=== PATIENT | female | born 1965 | race African-American/Black ===

== ENCOUNTER 2017-07-08 05:02 | Inpatient (IN) | payer BC, OTHER ==
[2017-06-30 18:14] VITALS: BMI 28.8
--- NOTE | 2017-07-08 07:29 | HP ---
Past Medical History - Primary Care Physician PCP:: Lalo Tnag - Admission Chief Complaint: pelvic pain, large fibroid uterus History of Present Illness: 52 yo f with hx large pelvic mass consistant with fibroid uterus admitted for supracervical abdominal hysterectomy, possible BSO, risks of procedure has syed discussed with patient in detail, ulternatives and no tx explained History Source: Patient Limitations to Obtaining History: No Limitations - Past Medical History Cardiovascular: Yes: HTN ...: 0 ...Para: 0 Heme/Onc: Yes: Anemia - Past Surgical History Hx Myomectomy: No Hx Transabdominal Cerclage: No - Smoking History Smoking history: Never smoked Have you smoked in the past 12 months: No - Alcohol/Substance Use Hx Alcohol Use: No - Social History History of Recent Travel: No Home Medications - Allergies Allergies/Adverse Reactions: Allergies Allergy/AdvReac Type Severity Reaction Status Date / Time perfume Allergy Verified 06/30/17 18:05 - Home Medications Home Medications: Ambulatory Orders Iron,Carb/Vit C/Vit B12/Folic [Iron 100 Plus Tablet] 1 each PO DAILY 06/30/17 Nadolol [Corgard -] 40 mg PO DAILY 06/30/17 Olmesartan/Amlodipin/Hcthiazid [Tribenzor 20-5-12.5 mg Tablet] 1 each PO DAILY 06/30/17 Review of Systems - Review of Systems Constitutional: reports: Lethargy Eyes: reports: No Symptoms HENT: reports: No Symptoms Respiratory: reports: No Symptoms Gastrointestinal: reports: No Symptoms Genitourinary: reports: Pain, Urgency, Vaginal Bleeding Breasts: reports: No Symptoms Reported Musculoskeletal: reports: No Symptoms Integumentary: reports: No Symptoms Neurological: reports: No Symptoms Endocrine: reports: No Symptoms Hematology/Lymphatic: reports: No Symptoms Psychiatric: reports: No Symptoms Physical Exam-APPLICATION INTEGRATOR Constitutional: Yes: Well Nourished, No Distress, Calm Eyes: Yes: WNL, Conjunctiva Clear, EOM Intact HENT: Yes: WNL, Atraumatic, Normocephalic Neck: Yes: WNL, Supple, Trachea Midline Cardiovascular: Yes: WNL, Regular Rate and Rhythm Respiratory: Yes: WNL, Regular, CTA Bilaterally Gastrointestinal: Yes: WNL, Normal Bowel Sounds, Soft, Distention, Tenderness ...Rectal Exam: Yes: WNL Renal/: Yes: WNL Pelvis: Yes: Mass, Tenderness (pelvic mass extended to sternum area) External Genitalia: Yes: Normal Vaginal Exam: Yes: Normal Cervix: Yes: Normal Uterus: Yes: Enlarged, Lumpy (32 weeks sizeterus), Mass Adnexa: Not Palpable: Left, Right Breast(s): Yes: WNL Musculoskeletal: Yes: WNL Extremities: Yes: WNL Edema: LLE: Trace, RLE: Trace Integumentary: Yes: WNL Neurological: Yes: WNL, Alert, Oriented ...Motor Strength: WNL Psychiatric: Yes: WNL, Alert, Oriented Problem List - Problem (1) Pelvic pain Code(s): R10.2 - PELVIC AND PERINEAL PAIN (2) Fibroid, uterine Code(s): D25.9 - LEIOMYOMA OF UTERUS, UNSPECIFIED Qualifiers: Uterine leiomyoma location: intramural Qualified Code(s): D25.1 - Intramural leiomyoma of uterus Assessment/Plan supracervical abdominal hysterectomy, possible BSO, rba discussed
[2017-07-08] MEDS ORDERED: ceFAZolin 2 GRAM PREMIX BAG IVPB ONE (07:30)
[2017-07-08] MEDS ORDERED: ROPIVACAINE HCL 0.5% 30ML VIAL ONE (08:16)
[2017-07-08] MEDS ORDERED: DEXAMETHASONE SOD PHOSPHATE/PF 10 MG/ML SDV ONE (08:17)
[2017-07-08] MEDS ORDERED: ROCURONIUM BROMIDE 50 MG/5 ML VIAL ONE ×2 (08:19→08:26)
[2017-07-08] MEDS ORDERED: fentaNYL CITRATE 250 MCG/5 ML VIAL ONE ×2 (08:19→08:26)
[2017-07-08] MEDS ORDERED: PROPOFOL 20 ML ONE ×2 (08:19→08:26)
[2017-07-08] MEDS ORDERED: MIDAZOLAM HCL 2 MG/2 ML SINGLE DOSE VIAL ONE ×3 (08:19→08:26)
[2017-07-08] MEDS ORDERED: ceFAZolin SODIUM 1 GM VIAL ONE (08:22)
[2017-07-08] MEDS ORDERED: SUCCINYLCHOLINE CHLORIDE 200 MG/10 ML VIAL ONE (08:26)
[2017-07-08] MEDS ORDERED: LIDOCAINE HCL/PF 2% SDV 5ML VIAL ONE (08:30)
[2017-07-08] MEDS ORDERED: ceFAZolin SODIUM 1 GM VIAL IVPB ONE (09:50)
[2017-07-08] MEDS ORDERED: oxyCODONE HCL 5 MG TABLET PO PRN ×3 (11:54→12:19)
[2017-07-08] MEDS ORDERED: IBUPROFEN 600 MG TABLET (FP) PO PRN (11:54)
[2017-07-08] MEDS ORDERED: ONDANSETRON 4 MG/2 ML VIAL IVPUSH PRN (11:54)
[2017-07-08] MEDS ORDERED: ELECTROLYTE-148 SOLN 1,000 ML IV SCH (12:00)
[2017-07-08] MEDS ORDERED: LACTATED RINGERS SOLUTION 1,000 ML IV SCH (12:30)
[2017-07-08] MEDS ORDERED: IBUPROFEN 800 MG/8 ML IJ IVPB ONE (12:49)
[2017-07-08] MEDS: IBUPROFEN 800 MG/8 ML IJ IVPB PRN (12:58)
--- NOTE | 2017-07-08 13:09 | OP ---
DATE OF OPERATION: 07/08/2017 PREOPERATIVE DIAGNOSES: Pelvic pain, large fibroid uterus. POSTOPERATIVE DIAGNOSES: Pelvic pain, large fibroid uterus, pelvic adhesion and bowel adhesions. SURGEON: Lalo Tang MD AIR TRAFFIC CONTROL SPECIALIST CENTER: Jeanne Huang MD ESTIMATED BLOOD LOSS: 200 mL ANESTHESIA: General. DESCRIPTION OF OPERATION: Patient was taken to the operating room. Under adequate general anesthesia in the dorsal supine position, abdomen and perineum were prepped and draped. Pfannenstiel abdominal skin incision was made. Abdominal wall was cut layer by layer until the peritoneum was exposed and incised. Upon entering the abdominal cavity, there was found a large fibroid uterus with multiple intramural myomas extending up to the transverse colon. Small bowel was adherent to the left ovary, and there was a paracervical 8-cm fibroid in the left broad ligament with bowel adhering to that area. The left ovary was adherent to the posterior uterine wall. Because of the massive size of the fibroid, we were unable to deliver the fibroid. Therefore, the rectus muscles were split on the right side, and then, more room was made available. Then, the fibroid was delivered at this time to the surface. The small bowel on the left side was dissected with the Metzenbaum scissors meticulously, and bowel was released from the ovary and the paracervical fibroid. Then, the right ovary appeared to be normal. Bladder was extended up into the mid-uterine wall with lower uterine segment fibroid. At this time, anterior leaf of broad ligament was opened, and the bladder was pushed down. On the left side, infundibulopelvic ligament was identified, and a hole was made into the broad ligament. Left infundibulopelvic ligament was grasped with a Reinaldo clamp, cut, and the clamp replaced with 0 Vicryl ties first and then with 0 Vicryl ligature suture. At this time, bladder was further pushed down. The left tube was removed with the bipolar LigaSure cautery. Then, on the right side, the right ovarian ligament and tube were grasped with a Reinaldo clamp and cut, and then, the clamp replaced with 0 Vicryl tie. Then, the right tube was removed with LigaSure cautery. There were large bilateral uterine arteries, and then, there was also a left broad ligament fibroid which was dissected from the pelvic sidewall by opening up the serosa and peritoneum. Then, the fibroid was removed from the pelvic sidewall, and then, the left ureter at this time was exposed and examined, was intact. Then, bilateral uterine arteries were identified, clamped with a Reinaldo clamp, cut, and the clamp replaced with 0 Vicryl suture bilaterally. At this time, bladder was further pushed down. Then, paracervical area was clamped with Reinaldo clamp, cut, and the clamp replaced with 0 Vicryl suture bilaterally. Then, the specimen was removed above the cervix. The cervix was sutured with interrupted suture of 0 Vicryl, and then, no active bleeding was seen. Pelvic cavity several times irrigated. Both ureters were examined visually, were normal. Then, reperitonealization of the pelvic floor was done with continuous suture of 2-0 Vicryl. Then, all pedicles were checked, were dry. No active bleeding was seen. All the lap pads, sponge, and instrument counts were correct. Peritoneum was closed with 0 Vicryl continuous suture. Rectus muscles, which were split, were brought together with interrupted suture of 0 Vicryl and approximated. Then, the muscles were brought together with interrupted suture of 0 Vicryl. Fascia was closed with 0 Vicryl continuous suture, subcutaneous fat with interrupted suture of 0 Vicryl, and the skin was closed with 4-0 Biosyn subcuticular suture. Patient tolerated the procedure well, left the OR in good condition. Sherrie [id number]
[2017-07-08] MEDS ORDERED: oxyCODONE HCL 5 MG TABLET ONE (13:18)
[2017-07-08] MEDS ORDERED: PCA PUMP KEY 1 EACH EACH ONE (15:22)
[2017-07-08] MEDS: HYDROmorphone *PCA* 10MG/50ML DISP.SYRIN PCA SCH (16:40)
[2017-07-08] MEDS: CEFAZOLIN 1 GM/D5W 1 GM/50 ML BAG IVPB SCH (17:51)
[2017-07-08] MEDS ORDERED: oxyCODONE HCL 10 MG SUSTAINED ACTING TABLET PO SCH (22:00)
[2017-07-09] MEDS: CEFAZOLIN 1 GM/D5W 1 GM/50 ML BAG IVPB SCH ×2 (01:27→10:06)
[2017-07-09 07:50] LABS: HEMATOCRIT 29.6 % (32.4-45.2); HEMOGLOBIN 9.9 GM/dL (10.7-15.3); MCH 29.5 pg (25.7-33.7); MCHC 33.5 g/dl (32.0-36.0); PLATELET COUNT 245 K/MM3 (134-434); RBC 3.37 M/mm3 (3.60-5.2); RDW 14.9 % (11.6-15.6); WHITE BLOOD COUNT 8.1 K/mm3 (4.0-10.0)
[2017-07-09] MEDS: IBUPROFEN 800 MG/8 ML IJ IVPB PRN ×2 (08:27→17:26)
[2017-07-09 08:29] LABS: CHLORIDE 102 mmol/L (98-107); POTASSIUM 3.5 mmol/L (3.5-5.1); SODIUM 138 mmol/L (136-145)
[2017-07-09 08:36] LABS: ALK PHOS 42 U/L (45-117); ANION GAP 7 (8-16); BILIRUBIN,TOTAL 0.2 mg/dL (0.2-1.0); BLOOD UREA NITROGEN 11 mg/dL (7-18); CALCIUM 8.1 mg/dL (8.5-10.1); CO2 29 mmol/L (21-32); CREATININE 0.7 mg/dL (0.55-1.02); GLUCOSE,RANDOM 112 mg/dL (74-106); SGOT/AST 18 U/L (15-37); SGPT/ALT 16 U/L (12-78); TOT PROT 6.1 g/dl (6.4-8.2)
--- NOTE | 2017-07-09 09:41 | PN ---
Progress Note (short form) - Note Progress Note: pod 1, has nausea , vomited once CBC, BMP 07/09/17 06:00 07/09/17 06:00 Last Vital Signs Temp Pulse Resp BP Pulse Ox 98.6 F 69 20 117/52 98 07/09/17 06:00 07/09/17 06:00 07/09/17 06:00 07/09/17 06:00 07/08/17 20:22 abdomen soft, no distension, no cva incision dry, clean no calf tenderness no vaginal bleeding hernandez clear urine plan ambualte, advance diet d/c INSTRUMENTATION CONTROLS ENGINEER Problem List - Problems (1) Pelvic pain Code(s): R10.2 - PELVIC AND PERINEAL PAIN (2) Fibroid, uterine Code(s): D25.9 - LEIOMYOMA OF UTERUS, UNSPECIFIED Qualifiers: Uterine leiomyoma location: intramural Qualified Code(s): D25.1 - Intramural leiomyoma of uterus
[2017-07-09] MEDS ORDERED: BISACODYL 10 MG SUPP.RECT RC PRN (09:42)
--- NOTE | 2017-07-09 10:22 | PN ---
Progress Note, Physician Chief Complaint: day #1 s/p JOSUE - Current Medication List Current Medications: Active Medications Acetaminophen (Tylenol -) 650 mg PO Q6H PRN PRN Reason: PAIN LEVEL 1 - 3 Bisacodyl (Dulcolax Suppository -) 10 mg WA PRN PRN PRN Reason: CONSTIPATION Hydromorphone HCl (Dilaudid Children'S Author -) 10 mg PROCESS PLANT OPERATOR PROCESS PLANT OPERATOR VINNIE PRN Reason: Protocol Stop: 07/11/17 15:12 Last Admin: 07/08/17 16:40 Dose: 10 mg Parenteral Electrolytes (Plasma-Lyte 148 -) 1,000 mls @ 125 mls/hr IV ASDIR VINNIE Cefazolin Sodium (Ancef 1 Gm Premixed Ivpb -) 1 gm in 50 mls @ 100 mls/hr IVPB Q8H-IV VINNIE Stop: 07/09/17 17:59 Last Admin: 07/09/17 10:06 Dose: 100 mls/hr Lactated Ringer's (Lactated Ringers Solution) 1,000 mls @ 125 mls/hr IV ASDIR VINNIE Last Admin: 07/08/17 17:34 Dose: Not Given Ibuprofen (Motrin -) 600 mg PO Q6H PRN PRN Reason: FEVER Ibuprofen (Caldolor Injection -) 800 mg IVPB Q6H PRN PRN Reason: Fever - If PO not effective. Last Admin: 07/09/17 08:27 Dose: 800 mg Ondansetron HCl (Zofran Injection) 4 mg IVPUSH Q6H PRN PRN Reason: NAUSEA Last Admin: 07/09/17 06:52 Dose: 4 mg Simethicone (Mylicon -) 80 mg PO Q4H PRN PRN Reason: GAS - Objective Vital Signs: Vital Signs Temperature 98.6 F 07/09/17 06:00 Pulse Rate 69 07/09/17 06:00 Respiratory Rate 20 07/09/17 06:00 Blood Pressure 117/52 07/09/17 06:00 O2 Sat by Pulse Oximetry (%) 98 07/08/17 20:22 Labs: CBC, BMP 07/09/17 06:00 07/09/17 06:00 Assessment/Plan Comfortable after PROCESS PLANT OPERATOR was enacted last afternoon. Minimal pain today, but will keep PROCESS PLANT OPERATOR for now
[2017-07-09] MEDS ORDERED: PCA PUMP KEY 1 EACH EACH ONE (13:16)
[2017-07-09] MEDS: ACETAMINOPHEN 325 MG TABLET (FP) PO PRN (13:40)
[2017-07-09] MEDS: SIMETHICONE 80 MG TAB.CHEW (FP) PO PRN (13:41)
[2017-07-10] MEDS: ACETAMINOPHEN 325 MG TABLET (FP) PO PRN (02:45)
[2017-07-10] MEDS ORDERED: oxyCODONE HCL 5 MG TABLET PO PRN (04:03)
[2017-07-10] MEDS: oxyCODONE HCL 5 MG TABLET PO PRN ×2 (04:07→14:52)
[2017-07-10] MEDS: HYDROmorphone *PCA* 10MG/50ML DISP.SYRIN PCA SCH (07:06)
[2017-07-10 08:12] VITALS: BP 119/74; PULSE 66; TEMP 98.3
--- NOTE | 2017-07-10 09:05 | PN ---
Progress Note, Physician Chief Complaint: day #2 s/p JOSUE - Current Medication List Current Medications: Active Medications Acetaminophen (Tylenol -) 650 mg PO Q6H PRN PRN Reason: PAIN LEVEL 1 - 3 Last Admin: 07/10/17 02:45 Dose: 650 mg Bisacodyl (Dulcolax Suppository -) 10 mg RC PRN PRN PRN Reason: CONSTIPATION Last Admin: 07/09/17 20:54 Dose: 10 mg Parenteral Electrolytes (Plasma-Lyte 148 -) 1,000 mls @ 125 mls/hr IV ASDIR VINNIE Lactated Ringer's (Lactated Ringers Solution) 1,000 mls @ 125 mls/hr IV ASDIR VINNIE Last Admin: 07/08/17 17:34 Dose: Not Given Ibuprofen (Motrin -) 600 mg PO Q6H PRN PRN Reason: FEVER Ibuprofen (Caldolor Injection -) 800 mg IVPB Q6H PRN PRN Reason: Fever - If PO not effective. Last Admin: 07/09/17 17:26 Dose: 800 mg Ondansetron HCl (Zofran Injection) 4 mg IVPUSH Q6H PRN PRN Reason: NAUSEA Last Admin: 07/09/17 06:52 Dose: 4 mg Oxycodone HCl (Roxicodone -) 5 mg PO Q4H PRN PRN Reason: PAIN LEVEL 4 - 5 Oxycodone HCl (Roxicodone -) 10 mg PO Q4H PRN PRN Reason: PAIN LEVEL 6-10 Last Admin: 07/10/17 04:07 Dose: 10 mg Simethicone (Mylicon -) 80 mg PO Q4H PRN PRN Reason: GAS Last Admin: 07/09/17 13:41 Dose: 80 mg - Objective Vital Signs: Vital Signs Temperature 98.3 F 07/10/17 08:10 Pulse Rate 66 07/10/17 08:10 Respiratory Rate 20 07/10/17 08:10 Blood Pressure 119/74 07/10/17 08:10 O2 Sat by Pulse Oximetry (%) 98 07/09/17 14:00 Labs: CBC, BMP 07/09/17 06:00 07/09/17 06:00 Assessment/Plan Dilaudid NATURAL GAS BASIS TRADER was d/c'ed yesterday, as per patient. Pt with minimal pain, ready for discharge today.
[2017-07-10] MEDS ORDERED: MAGNESIUM HYDROX 2400MG/30ML ORAL SUSPENSION 30 ML CUP PO ONE (09:15)
[2017-07-10] MEDS: SIMETHICONE 80 MG TAB.CHEW (FP) PO PRN ×2 (09:48→14:53)
--- NOTE | 2017-07-10 15:09 | DS ---
Physical Exam-PROSTHODONTIST/OWNER Vital Signs: Vital Signs Temperature 98.3 F 07/10/17 08:10 Pulse Rate 66 07/10/17 08:10 Respiratory Rate 20 07/10/17 08:10 Blood Pressure 119/74 07/10/17 08:10 O2 Sat by Pulse Oximetry (%) 98 07/09/17 14:00 Constitutional: Yes: Well Nourished, No Distress, Calm Eyes: Yes: WNL, Conjunctiva Clear, EOM Intact HENT: Yes: WNL, Atraumatic, Normocephalic Neck: Yes: WNL, Supple, Trachea Midline Cardiovascular: Yes: WNL, Regular Rate and Rhythm Respiratory: Yes: WNL, Regular, CTA Bilaterally Gastrointestinal: Yes: WNL ...Rectal Exam: Yes: WNL Renal/: Yes: WNL Breast(s): Yes: WNL Musculoskeletal: Yes: WNL Extremities: Yes: WNL Edema: No Integumentary: Yes: WNL Wound/Incision: Yes: Clean/Dry, Well Approximated, Sutures Intact Neurological: Yes: WNL, Alert, Oriented ...Motor Strength: WNL Psychiatric: Yes: WNL, Alert, Oriented Labs: CBC, BMP 07/09/17 06:00 07/09/17 06:00 Discharge Summary Reason For Visit: LEIOMYOMA INTRAMURAL UTERUS Current Active Problems Fibroid, uterine (Acute) Pelvic pain (Acute) Procedures: Principal: suprcervical abdominal hysterectomy, , bilateral salpingectomy, LT oophorectomy Other Procedures: lysis of pelvic adhesions Condition: Good - Instructions Diet, Activity, Other Instructions: regualr diet, follow up office 2 weeks, if pain, fever call MD Referrals: Lalo Tang MD [Staff Physician] - - Home Medications Comprehensive Discharge Medication List: Ambulatory Orders Iron,Carb/Vit C/Vit B12/Folic [Iron 100 Plus Tablet] 1 each PO DAILY 06/30/17 Nadolol [Corgard -] 40 mg PO DAILY 06/30/17 Olmesartan/Amlodipin/Hcthiazid [Tribenzor 20-5-12.5 mg Tablet] 1 each PO DAILY 06/30/17
--- NOTE | 2017-07-11 09:40 | PATH ---
Surgical Pathology Report Patient Name: ROMI DURHAM [facility]. Rec. #: [id number] /Age/Gender: 1965 (Age: 52) / F Account: [id number] Location: [facility] OBS/BIOMASS POWER PLANT MANAGER Taken: 07/08/2017 Received: 07/08/2017 Reported: 07/11/2017 Physicians: Lalo Tang M.D. Specimen(s) Received A: RIGHT FALLOPIAN TUBE B: UTERUS, LEFT FALLOPIAN TUBE, LEFT OVARY Clinical History Fibroid uterus Final Diagnosis A. RIGHT FALLOPIAN TUBE, SALPINGECTOMY: FULL LUMINAL PORTION OF UNREMARKABLE FALLOPIAN TUBE, INCLUDING FIMBRIATED END B. UTERUS WITH LEFT FALLOPIAN TUBE AND LEFT OVARY, SUPRACERVICAL HYSTERECTOMY WITH LEFT SALPINGO-OOPHORECTOMY: UTERUS, 2689 GRAMS, WITH LEIOMYOMATA WITH AREAS OF DEGENERATIVE CHANGE, FOCAL ADENOMYOSIS, AND PROLIFERATIVE ENDOMETRIUM. BENIGN LEFT FALLOPIAN TUBE PRESENT. BENIGN LEFT OVARY WITH HEMORRHAGIC LUTEAL CYST. Electronically Signed Germán Alexis M.D. Gross Description A. Received in formalin labeled "right fallopian tube," is a 3.8 cm in length fimbriated fallopian tube. The outer surface is arevalo purple with adhesions. Sectioning reveals an unremarkable lumen. Grain Elevator Worker sections are submitted in 2 cassettes as follows: 1-fimbria; 2-cross sections of fallopian tube. B. Received fresh labeled "uterus, left ovary, left fallopian tube," is a 2689 g supracervically amputated uterus with an attached left fallopian tube and left ovary. The specimen measures 24 cm from superior to inferior, 16.5 cm from left to right and 16.5 cm from anterior to posterior. The serosa is reis with abundant bulging subserosal nodules, measuring up to 11.5 cm in greatest dimension. The endometrial cavity measures 12 cm in length and 8.5 cm from cornu to cornu. The endometrium is reis-brown and measures up to 0.3 cm in thickness. The myometrium displays abundant intramural nodules, measuring up to 8.5 cm in greatest dimension. The cut surface of the subserosal and intramural nodules is reis, firm to rubbery and displays whorled architecture. No areas of hemorrhage or necrosis are identified. The myometrium is reis-pink and measures up to 9 cm in thickness. The attached left fimbriated fallopian tube measures 7 cm in length. The outer surface is pinedo purple and smooth. Sectioning reveals an unremarkable lumen. The attached left ovary measures 3.8 x 2.1 x 1.6 cm. The outer surface is reis, convoluted and smooth. Sectioning reveals a 2 cm in greatest dimension hemorrhagic cyst as well as multiple corpora lutea. The remaining ovarian parenchyma is unremarkable. Grain Elevator Worker sections are submitted in 19 cassettes as follows: 1-cervical stump margin of resection; 9-5-cxubmlyy endomyometrium; 9-0-uxlfyzfrj endomyometrium; 6-96-qtmcywpecb nodules; 75-34-ojvdvtvkmq nodules; 16-left fallopian tube fimbria; 17-cross sections of left fallopian tube; 18-hemorrhagic left ovarian cyst; 19-additional left ovary. 07/09/2017 [facility]07/09/2017
== END 2017-07-10 16:30 | disposition home or self-care (01) | DRG 743 ==
LOC: JSAMEDAYSX 05:02 → EDSTATUS 09:00 → J3W 14:22
PROVIDERS: ADMIT Obstetrics & Gynecology; ATTEND Obstetrics & Gynecology
PROC: 0DNW0ZZ Release Peritoneum, Open Approach (ICD-10-PCS; 2017-07-08)
PROC: 0UT60ZZ Resection of Left Fallopian Tube, Open Approach (ICD-10-PCS; 2017-07-08)
PROC: 0UT10ZZ Resection of Left Ovary, Open Approach (ICD-10-PCS; 2017-07-08)
PROC: 0UT50ZZ Resection of Right Fallopian Tube, Open Approach (ICD-10-PCS; 2017-07-08)
PROC: 0UT90ZL Resection of Uterus, Supracervical, Open Approach (ICD-10-PCS; principal; 2017-07-08 09:00)
DX: D25.1 Intramural leiomyoma of uterus (principal); R10.2 Pelvic and perineal pain; N73.6 Female pelvic peritoneal adhesions (postinfective); N83.292 Other ovarian cyst, left side; N80.0 Endometriosis of uterus
CPT/HCPCS: 36415; 80053; 84702; 85027; 86850; 86900; 86901; 88302-TC; 88307-TC; 94010; 94760

== ENCOUNTER 2021-04-30 11:03 | Inpatient (IN) | payer BC, OTHER ==
[2021-04-30] MEDS ORDERED: SODIUM CHLORIDE 1,000 ML IV STA (13:37)
[2021-04-30 15:39] LABS: URINE APPEARANCE CLEAR; URINE BILIRUBIN 1+ (NEGATIVE); URINE COLOR DK YELLOW; URINE GLUCOSE (UA) NEGATIVE (NEGATIVE); URINE KETONE NEGATIVE (NEGATIVE); URINE LEUK ESTERASE NEGATIVE (NEGATIVE); URINE NITRITE NEGATIVE (NEGATIVE); URINE PROTEIN NEGATIVE (NEGATIVE)
[2021-04-30 15:47] LABS: BASO % 0.9 % (0-2.0); EOS % 1.6 % (0-4.5); HEMATOCRIT 41.2 % (32.4-45.2); HEMOGLOBIN 13.8 GM/dL (10.7-15.3); LYMPH % 30.3 % (8-40); MCH 28.5 pg (25.7-33.7); MCHC 33.4 g/dl (32.0-36.0); MEAN CELL VOLUME 85.4 fl (80-96); MEAN PLT VOLUME 10.5 fl (7.5-11.1); NEUT % 54.2 % (42.8-82.8); PLATELET COUNT 313 10^3/uL (134-434); RBC 4.82 M/mm3 (3.60-5.2); RDW 16.4 % (11.6-15.6); WHITE BLOOD COUNT 5.3 K/mm3 (4.0-10.0)
[2021-04-30 16:10] LABS: CHLORIDE 101 mmol/L (98-107); SODIUM 137 mmol/L (136-145)
[2021-04-30 16:13] LABS: ALBUMIN 3.7 g/dl (3.4-5.0); BLOOD UREA NITROGEN 11.2 mg/dL (7-18); CALCIUM 9.6 mg/dL (8.5-10.1); LIPASE 81 U/L (73-393)
[2021-04-30 16:14] LABS: ANION GAP 9 MMOL/L (8-16); CO2 26 mmol/L (21-32); GLUCOSE,RANDOM 90 mg/dL (74-106)
[2021-04-30 16:16] LABS: CREATININE 0.8 mg/dL (0.55-1.3)
[2021-04-30 16:18] LABS: BILIRUBIN,TOTAL 5.5 mg/dL (0.2-1); TOT PROT 7.8 g/dl (6.4-8.2)
[2021-04-30 16:19] LABS: ALK PHOS 450 U/L (45-117)
[2021-04-30 16:33] LABS: SGOT/AST 1752 U/L (15-37); SGPT/ALT 2711 U/L (13-61)
[2021-04-30] MEDS ORDERED: PANTOPRAZOLE SODIUM 40 MG VIAL IVPUSH ONE (18:47)
[2021-04-30] MEDS ORDERED: PANTOPRAZOLE SODIUM 40 MG VIAL ONE ×2 (18:59→19:54)
[2021-04-30] MEDS ORDERED: SODIUM CHLORIDE 1,000 ML IV SCH (19:00)
[2021-04-30] MEDS ORDERED: POLYETHYLENE GLYCOL (HEALTHYLAX) 3350 17 GM PACKET PO PRN (20:55)
[2021-04-30] MEDS ORDERED: DEXTROSE 5%-NORMAL SALINE 1,000 ML IV SCH (21:00)
[2021-04-30] MEDS ORDERED: ONDANSETRON 4 MG/2 ML VIAL IVPUSH PRN (21:15)
[2021-04-30] MEDS ORDERED: PIPERACILLIN/TAZOB 3.375 GM 3.375 GM/50 ML BAG IVPB ONE (22:57)
[2021-04-30 23:08] LABS: INR 1.3 (0.83-1.09)
[2021-04-30] MEDS: PIPERACILLIN/TAZOB 3.375 GM 3.375 GM in DEXTROSE 5%-WATER - 50 ML IVPB SCH (23:11)
[2021-04-30] MEDS: LACTATED RINGERS SOLUTION 1,000 ML/1,000 ML INFUS.BAG IV SCH (23:11)
[2021-05-01] MEDS ORDERED: PIPERACILLIN/TAZOB 3.375 GM 3.375 GM in DEXTROSE 5%-WATER - 50 ML IVPB SCH (02:00)
[2021-05-01 02:41] LABS: BILIRUBIN,DIRECT 3.8 mg/dL (0.0-0.2)
[2021-05-01 02:54] LABS: LDH 1879 U/L (84-246)
[2021-05-01] MEDS: PIPERACILLIN/TAZOB 3.375 GM 3.375 GM in DEXTROSE 5%-WATER - 50 ML IVPB SCH ×3 (04:15→17:48)
[2021-05-01] MEDS ORDERED: DEXTROSE 5%-WATER - 50 ML IVPB ONE ×3 (04:15→17:23)
[2021-05-01] MEDS ORDERED: PIPERACILLIN/TAZOBACTAM 3.375 GM VIAL IVPB ONE ×3 (04:15→17:23)
[2021-05-01 05:26] VITALS: BMI 28.2
[2021-05-01] MEDS: POLYETHYLENE GLYCOL (HEALTHYLAX) 3350 17 GM PACKET PO SCH (09:50)
[2021-05-01 11:48] LABS: BASO % 1.3 % (0-2.0); EOS % 7.4 % (0-4.5); HEMATOCRIT 35.9 % (32.4-45.2); HEMOGLOBIN 11.6 GM/dL (10.7-15.3); LYMPH % 34.2 % (8-40); MCHC 32.4 g/dl (32.0-36.0); MEAN CELL VOLUME 86.5 fl (80-96); MEAN PLT VOLUME 10.5 fl (7.5-11.1); MONO % 10.9 % (3.8-10.2); NEUT % 46.2 % (42.8-82.8); PLATELET COUNT 265 10^3/uL (134-434); RBC 4.15 M/mm3 (3.60-5.2); RDW 16.4 % (11.6-15.6); WHITE BLOOD COUNT 4.1 K/mm3 (4.0-10.0)
[2021-05-01 11:54] LABS: INR 1.26 (0.83-1.09); PROTHROMBIN TIME (PATIENT) 14.5 SEC (9.7-13.0)
[2021-05-01 11:56] LABS: ACTIVATED PTT 28.8 SECONDS (25.2-36.5)
[2021-05-01 12:06] LABS: BLOOD UREA NITROGEN 10.3 mg/dL (7-18); CALCIUM 9.1 mg/dL (8.5-10.1)
[2021-05-01 12:07] LABS: MAGNESIUM 2.3 mg/dL (1.8-2.4)
[2021-05-01 12:08] LABS: BILIRUBIN,DIRECT 3.8 mg/dL (0.0-0.2)
[2021-05-01 12:10] LABS: CREATININE 0.9 mg/dL (0.55-1.3)
[2021-05-01 12:11] LABS: BILIRUBIN,TOTAL 4.5 mg/dL (0.2-1)
[2021-05-01] MEDS ORDERED: WATER IVPB ONE (13:55)
[2021-05-01] MEDS ORDERED: DEXTROSE 5% IVPB ONE (13:55)
[2021-05-01] MEDS ORDERED: ACETYLCYSTEINE IVPB ONE (13:55)
[2021-05-01 15:50] LABS: IRON SERUM 187 ug/dL (50-175)
[2021-05-01 15:51] LABS: TOTAL IRON BINDING CAPACITY 279 ug/dL (250-450)
[2021-05-01] MEDS: LACTATED RINGERS SOLUTION 1,000 ML/1,000 ML INFUS.BAG IV SCH (21:55)
[2021-05-02] MEDS ORDERED: PIPERACILLIN/TAZOBACTAM 3.375 GM VIAL IVPB ONE ×2 (00:55→09:38)
[2021-05-02] MEDS ORDERED: DEXTROSE 5%-WATER - 50 ML IVPB ONE ×2 (00:56→09:38)
[2021-05-02] MEDS: PIPERACILLIN/TAZOB 3.375 GM 3.375 GM in DEXTROSE 5%-WATER - 50 ML IVPB SCH ×3 (01:02→18:08)
[2021-05-02 08:49] LABS: BASO % 1.5 % (0-2.0); EOS % 9.9 % (0-4.5); HEMATOCRIT 36.1 % (32.4-45.2); HEMOGLOBIN 11.9 GM/dL (10.7-15.3); LYMPH % 35.7 % (8-40); MCH 28.3 pg (25.7-33.7); MCHC 32.9 g/dl (32.0-36.0); MEAN CELL VOLUME 86.1 fl (80-96); MEAN PLT VOLUME 10.2 fl (7.5-11.1); MONO % 10.7 % (3.8-10.2); NEUT % 42.2 % (42.8-82.8); PLATELET COUNT 269 10^3/uL (134-434); RBC 4.19 M/mm3 (3.60-5.2); RDW 16.7 % (11.6-15.6); WHITE BLOOD COUNT 3.6 K/mm3 (4.0-10.0)
[2021-05-02 09:21] LABS: INR 1.37 (0.83-1.09); PROTHROMBIN TIME (PATIENT) 15.8 SEC (9.7-13.0)
[2021-05-02 09:37] LABS: ALBUMIN 2.8 g/dl (3.4-5.0); BLOOD UREA NITROGEN 6.8 mg/dL (7-18)
[2021-05-02 09:40] LABS: CREATININE 0.7 mg/dL (0.55-1.3)
[2021-05-02 09:42] LABS: BILIRUBIN,TOTAL 4.9 mg/dL (0.2-1); TOT PROT 6.3 g/dl (6.4-8.2)
[2021-05-02] MEDS: POLYETHYLENE GLYCOL (HEALTHYLAX) 3350 17 GM PACKET PO SCH (10:00)
[2021-05-02] MEDS: amLODIPine BESYLATE 5 MG TABLET (FP) PO SCH ×2 (10:00→13:21)
[2021-05-02 14:55] VITALS: BP 142/93; PULSE 71; TEMP 98.1
[2021-05-03 05:06] LABS: CMV IgM < 30.0 AU/mL (0.0-29.9)
[2021-05-03 16:08] LABS: EPSTEIN BARR ANTIBODY IgM <36.0 U/mL (0.0-35.9)
[2021-05-04 15:07] LABS: MITOCHONDRIAL AB <20.0 Units (0.0-20.0)
== END 2021-05-02 18:51 | disposition short-term general hospital (02) | DRG 445 ==
LOC: JER 11:03 → JERBED 20:31 → J6S 05-01 03:59
PROVIDERS: ADMIT Internal Medicine; ATTEND Family Medicine
DX: K81.0 Acute cholecystitis (principal); B17.9 Acute viral hepatitis, unspecified; I10 Essential (primary) hypertension; R74.01 Elevation of levels of liver transaminase levels; R11.0 Nausea
CPT/HCPCS: 36415; 71045-TC-FY; 71046-TC-FY; 74177-TC; 74181-TC; 76705-TC; 78226-TC; 80048; 80053; 80076; 81003; 82150; 82248; 82550; 82977; 83516; 83540; 83550; 83615; 83690; 83735; 84484; 85025; 85610; 85730; 86038; 86644; 86645; 86663; 86664; 86665; 86695; 86696; 86704; 86707; 86803; 86850; 86900; 86901; 87040; 87086; 87340; 87350; 87517; 87522; 93005; 93010; 99285-25; A9537; C9803; Q9967; U0003; U0005

== ENCOUNTER 2021-06-13 17:11 | Emergency (ER) | payer BC, OTHER ==
[2021-06-13 17:39] VITALS: BMI 26.6
[2021-06-13 21:21] LABS: BASO % 1.6 % (0-2.0); EOS % 5.1 % (0-4.5); HEMATOCRIT 36.2 % (32.4-45.2); HEMOGLOBIN 12.6 GM/dL (10.7-15.3); LYMPH % 37.5 % (8-40); MCH 30.9 pg (25.7-33.7); MCHC 34.9 g/dl (32.0-36.0); MEAN CELL VOLUME 88.7 fl (80-96); MEAN PLT VOLUME 10.3 fl (7.5-11.1); MONO % 10.6 % (3.8-10.2); NEUT % 45.2 % (42.8-82.8); PLATELET COUNT 215 10^3/uL (134-434); RBC 4.08 M/mm3 (3.60-5.2); RDW 17.1 % (11.6-15.6); WHITE BLOOD COUNT 7.4 K/mm3 (4.0-10.0)
[2021-06-13 21:29] LABS: INR 1.82 (0.83-1.09)
[2021-06-13 21:32] LABS: ACTIVATED PTT 30.7 SECONDS (25.2-36.5)
[2021-06-13 21:43] LABS: ALBUMIN 3.2 g/dl (3.4-5.0); CALCIUM 9.1 mg/dL (8.5-10.1)
[2021-06-13 21:44] LABS: BLOOD UREA NITROGEN 7.2 mg/dL (7-18)
[2021-06-13 21:47] LABS: CREATININE 0.7 mg/dL (0.55-1.3)
[2021-06-13 21:48] LABS: BILIRUBIN,TOTAL 12.9 mg/dL (0.2-1); TOT PROT 6.8 g/dl (6.4-8.2)
[2021-06-14] MEDS ORDERED: WATER IVPB ONE ×2 (00:26→05:00)
[2021-06-14] MEDS ORDERED: DEXTROSE 5% IVPB ONE ×2 (00:26→05:00)
[2021-06-14] MEDS ORDERED: ACETYLCYSTEINE IVPB ONE ×2 (00:26→05:00)
[2021-06-14 03:09] VITALS: TEMP 98.3
[2021-06-14 07:17] VITALS: BP 144/99; PULSE 99
== END 2021-06-14 07:17 | disposition short-term general hospital (02) ==
LOC: JER 17:11
PROC: 3E033GC Introduction of Other Therapeutic Substance into Peripheral Vein, Percutaneous Approach (ICD-10-PCS; principal; 2021-06-13)
DX: K72.00 Acute and subacute hepatic failure without coma (principal)
CPT/HCPCS: 36415; 71046-TC-FY; 80053; 83690; 85025; 85610; 85730; 93005; 93010; 99285-25; C9803; U0003; U0005

== ENCOUNTER 2022-04-03 04:21 | Day surgery (SDC) | payer BC, OTHER ==
[2022-04-03 08:05] VITALS: BMI 27.6
[2022-04-03 09:30] VITALS: TEMP 97
[2022-04-03 10:23] VITALS: BP 160/92; PULSE 66; RESP 11
== END 2022-04-03 10:43 | disposition home or self-care (01) ==
LOC: JASU-ENDO 04:21
PROVIDERS: ATTEND Internal Medicine Gastroenterology
PROC: 0DBN8ZX Excision of Sigmoid Colon, Via Natural or Artificial Opening Endoscopic, Diagnostic (ICD-10-PCS; 2022-04-03)
PROC: 0DBP8ZX Excision of Rectum, Via Natural or Artificial Opening Endoscopic, Diagnostic (ICD-10-PCS; principal; 2022-04-03 09:00)
DX: Z12.11 Encounter for screening for malignant neoplasm of colon (principal); K62.1 Rectal polyp; D12.5 Benign neoplasm of sigmoid colon; K63.89 Other specified diseases of intestine; K64.8 Other hemorrhoids
CPT/HCPCS: 88305-TC

== ENCOUNTER 2022-04-08 13:19 | Inpatient (IN) | payer BC, OTHER ==
[2022-04-08] MEDS ORDERED: LACTATED RINGERS SOLUTION 1000 ML INFUS.BAG IV ONE (14:54)
[2022-04-08] MEDS ORDERED: KETOROLAC TROMETHAMINE 30 MG/1 ML VIAL IM ONE (14:55)
[2022-04-08] MEDS ORDERED: KETOROLAC TROMETHAMINE 15 MG/ML VIAL ONE (14:58)
[2022-04-08 16:20] LABS: BASO % 0.4 % (0-2.0); HEMATOCRIT 39.5 % (32.4-45.2); HEMOGLOBIN 12.8 GM/dL (10.7-15.3); LYMPH % 5.2 % (8-40); MCH 31.1 pg (25.7-33.7); MCHC 32.4 g/dl (32.0-36.0); MEAN CELL VOLUME 96.1 fl (80-96); NEUT % 83.4 % (42.8-82.8); PLATELET COUNT 210 10^3/uL (134-434); RBC 4.11 M/mm3 (3.60-5.2); RDW 14.2 % (11.6-15.6); WHITE BLOOD COUNT 11.3 K/mm3 (4.0-10.0)
[2022-04-08 16:21] LABS: EPI CELLS 1 /uL (0-25.1); HYALINE CASTS 0 /uL (0-3.1); URINE APPEARANCE CLOUDY; URINE BACTERIA >9,000 /uL (0-1359); URINE BILIRUBIN NEGATIVE (NEGATIVE); URINE COLOR YELLOW; URINE GLUCOSE (UA) NEGATIVE (NEGATIVE); URINE KETONE TRACE (NEGATIVE); URINE LEUK ESTERASE 3+ (NEGATIVE); URINE NITRITE NEGATIVE (NEGATIVE); URINE PROTEIN 1+ (NEGATIVE); URINE RBC 14 /uL (0-23.9); URINE WBC 340 /uL (0-25.8)
[2022-04-08] MEDS ORDERED: CEFTRIAXONE 1,000 MG in DEXTROSE 5%-WATER - 50 ML IVPB ONE (16:26)
[2022-04-08 16:29] LABS: INR 1.28 (0.83-1.09); PROTHROMBIN TIME (PATIENT) 14.8 SEC (9.7-13.0)
[2022-04-08 16:38] LABS: CALCIUM 9.1 mg/dL (8.5-10.1)
[2022-04-08 16:39] LABS: ALBUMIN 3.2 g/dl (3.4-5.0); BLOOD UREA NITROGEN 13.7 mg/dL (7-18)
[2022-04-08 16:42] LABS: CREATININE 1.1 mg/dL (0.55-1.3)
[2022-04-08 16:44] LABS: BILIRUBIN,TOTAL 1.2 mg/dL (0.2-1); TOT PROT 6.9 g/dl (6.4-8.2)
[2022-04-08] MEDS ORDERED: CEFTRIAXONE 1 GM/50 ML BAG ONE (17:48)
[2022-04-08 22:56] VITALS: BMI 23.7
[2022-04-09] MEDS ORDERED: ACETAMINOPHEN 325 MG TABLET (FP) PO PRN (03:42)
[2022-04-09] MEDS ORDERED: METOCLOPRAMIDE HCL INJECTION 10 MG/2 ML VIAL IVPB ONE (04:16)
[2022-04-09] MEDS ORDERED: MEROPENEM 1 GM in DEXTROSE 5%-WATER 100 ML IVPB ONE (07:44)
[2022-04-09] MEDS ORDERED: KETOROLAC TROMETHAMINE 15 MG/ML VIAL IVPUSH PRN (08:04)
[2022-04-09] MEDS ORDERED: azaTHIOprine 50 MG TABLET PO SCH (10:00)
[2022-04-09] MEDS ORDERED: CEFTRIAXONE 1 GM in DEXTROSE 5%-WATER - 50 ML IVPB SCH (10:00)
[2022-04-09] MEDS: HYDROCHLOROTHIAZIDE 12.5 MG CAPSULE (FP) PO SCH (10:15)
[2022-04-09] MEDS: LABETALOL HCL 100 MG TABLET (FP) PO SCH (10:15)
[2022-04-09] MEDS: predniSONE 5 MG TABLET (UD) PO SCH (10:16)
[2022-04-09] MEDS: LOSARTAN POTASSIUM 50 MG TABLET PO SCH (10:21)
[2022-04-09] MEDS: HEPARIN NA (PORCINE) 5,000 UNITS/ML 1ML VIAL SQ SCH ×2 (10:23→22:00)
[2022-04-09 10:36] LABS: BASO % 0.4 % (0-2.0); EOS % 0.9 % (0-4.5); HEMATOCRIT 35.3 % (32.4-45.2); HEMOGLOBIN 11.7 GM/dL (10.7-15.3); LYMPH % 7.9 % (8-40); MCH 31.9 pg (25.7-33.7); MCHC 33.3 g/dl (32.0-36.0); MEAN CELL VOLUME 95.9 fl (80-96); MEAN PLT VOLUME 10.4 fl (7.5-11.1); MONO % 15.7 % (3.8-10.2); NEUT % 75.1 % (42.8-82.8); PLATELET COUNT 192 10^3/uL (134-434); RBC 3.68 M/mm3 (3.60-5.2); RDW 13.8 % (11.6-15.6); WHITE BLOOD COUNT 8.4 K/mm3 (4.0-10.0)
[2022-04-09 11:02] LABS: ALBUMIN 2.7 g/dl (3.4-5.0); CALCIUM 8.6 mg/dL (8.5-10.1)
[2022-04-09 11:06] LABS: BILIRUBIN,TOTAL 1.2 mg/dL (0.2-1)
[2022-04-09] MEDS: AZATHIOPRINE PO SCH (12:24)
[2022-04-09] MEDS ORDERED: POTASSIUM CHLORIDE ORAL LIQUID 20 MEQ/15 ML PO ONE (14:56)
[2022-04-09] MEDS: MEROPENEM 1 GM in DEXTROSE 5%-WATER 100 ML IVPB SCH (18:12)
[2022-04-10] MEDS: MEROPENEM 1 GM in DEXTROSE 5%-WATER 100 ML IVPB SCH ×2 (03:00→10:07)
[2022-04-10] MEDS ORDERED: IBUPROFEN 600 MG TABLET (FP) PO ONE (09:45)
[2022-04-10] MEDS: HYDROCHLOROTHIAZIDE 12.5 MG CAPSULE (FP) PO SCH ×2 (10:11→21:19)
[2022-04-10] MEDS: predniSONE 5 MG TABLET (UD) PO SCH (10:12)
[2022-04-10] MEDS: LABETALOL HCL 100 MG TABLET (FP) PO SCH ×2 (10:12→21:13)
[2022-04-10] MEDS: LOSARTAN POTASSIUM 50 MG TABLET PO SCH (10:16)
[2022-04-10] MEDS: HEPARIN NA (PORCINE) 5,000 UNITS/ML 1ML VIAL SQ SCH ×2 (10:17→21:18)
[2022-04-10] MEDS: AZATHIOPRINE PO SCH (10:17)
[2022-04-10] MEDS ORDERED: CEFAZOLIN SODIUM 2 GM in DEXTROSE 5%-WATER 100 ML IVPB SCH ×2 (12:00→12:14)
[2022-04-10] MEDS: CEFAZOLIN SODIUM 2 GM in DEXTROSE 5%-WATER 100 ML IVPB SCH (18:23)
[2022-04-11] MEDS: CEFAZOLIN SODIUM 2 GM in DEXTROSE 5%-WATER 100 ML IVPB SCH ×3 (02:11→17:25)
[2022-04-11 09:00] LABS: HEMATOCRIT 34.7 % (32.4-45.2); HEMOGLOBIN 11.5 GM/dL (10.7-15.3); MCH 31.8 pg (25.7-33.7); MCHC 33.1 g/dl (32.0-36.0); MEAN PLT VOLUME 10.4 fl (7.5-11.1); PLATELET COUNT 255 10^3/uL (134-434); RBC 3.62 M/mm3 (3.60-5.2); RDW 13.7 % (11.6-15.6); WHITE BLOOD COUNT 7.7 K/mm3 (4.0-10.0)
[2022-04-11] MEDS: LOSARTAN POTASSIUM 50 MG TABLET PO SCH (09:54)
[2022-04-11] MEDS: predniSONE 5 MG TABLET (UD) PO SCH (09:55)
[2022-04-11] MEDS: HYDROCHLOROTHIAZIDE 12.5 MG CAPSULE (FP) PO SCH (09:55)
[2022-04-11] MEDS: AZATHIOPRINE PO SCH (09:56)
[2022-04-11] MEDS: HEPARIN NA (PORCINE) 5,000 UNITS/ML 1ML VIAL SQ SCH ×2 (09:56→21:59)
[2022-04-11] MEDS: LABETALOL HCL 100 MG TABLET (FP) PO SCH (09:56)
[2022-04-11] MEDS: IBUPROFEN 600 MG TABLET (FP) PO PRN (09:57)
[2022-04-11 12:11] LABS: CALCIUM 8.9 mg/dL (8.5-10.1)
[2022-04-11 12:12] LABS: BLOOD UREA NITROGEN 15.1 mg/dL (7-18)
[2022-04-11 12:15] LABS: CREATININE 0.8 mg/dL (0.55-1.3)
[2022-04-11] MEDS ORDERED: SODIUM CHLORIDE 0.45%/POT 20 MEQ/1,000 ML INFUS.BAG IV SCH (12:30)
[2022-04-12] MEDS: CEFAZOLIN SODIUM 2 GM in DEXTROSE 5%-WATER 100 ML IVPB SCH ×3 (02:35→17:20)
[2022-04-12] MEDS: HYDROCHLOROTHIAZIDE 12.5 MG CAPSULE (FP) PO SCH (09:56)
[2022-04-12] MEDS: predniSONE 5 MG TABLET (UD) PO SCH (09:56)
[2022-04-12] MEDS: LABETALOL HCL 100 MG TABLET (FP) PO SCH (09:56)
[2022-04-12] MEDS: LOSARTAN POTASSIUM 50 MG TABLET PO SCH (10:04)
[2022-04-12] MEDS: HEPARIN NA (PORCINE) 5,000 UNITS/ML 1ML VIAL SQ SCH ×2 (10:05→22:42)
[2022-04-12] MEDS: AZATHIOPRINE PO SCH (10:05)
[2022-04-13] MEDS: IBUPROFEN 600 MG TABLET (FP) PO PRN (02:08)
[2022-04-13] MEDS: CEFAZOLIN SODIUM 2 GM in DEXTROSE 5%-WATER 100 ML IVPB SCH ×3 (02:08→17:44)
[2022-04-13 04:40] VITALS: RESP 18
[2022-04-13] MEDS: HYDROCHLOROTHIAZIDE 12.5 MG CAPSULE (FP) PO SCH (09:13)
[2022-04-13] MEDS: predniSONE 5 MG TABLET (UD) PO SCH (09:13)
[2022-04-13] MEDS: HEPARIN NA (PORCINE) 5,000 UNITS/ML 1ML VIAL SQ SCH ×2 (09:15→22:44)
[2022-04-13] MEDS: LABETALOL HCL 100 MG TABLET (FP) PO SCH (09:16)
[2022-04-13] MEDS: LOSARTAN POTASSIUM 50 MG TABLET PO SCH (09:16)
[2022-04-13] MEDS: AZATHIOPRINE PO SCH (09:24)
[2022-04-13] MEDS: POTASSIUM CHLORIDE TABS 10 MEQ TABLET.ER (FP) PO SCH (15:06)
[2022-04-14] MEDS: CEFAZOLIN SODIUM 2 GM in DEXTROSE 5%-WATER 100 ML IVPB SCH ×3 (02:16→17:13)
[2022-04-14] MEDS: IBUPROFEN 600 MG TABLET (FP) PO PRN (04:17)
[2022-04-14 09:22] LABS: EOS % 3.4 % (0-4.5); LYMPH % 14.4 % (8-40); MCH 31.9 pg (25.7-33.7); MCHC 33.3 g/dl (32.0-36.0); MEAN CELL VOLUME 95.8 fl (80-96); MEAN PLT VOLUME 9.2 fl (7.5-11.1); NEUT % 73.2 % (42.8-82.8); PLATELET COUNT 472 10^3/uL (134-434); RBC 3.75 M/mm3 (3.60-5.2); RDW 14.2 % (11.6-15.6); WHITE BLOOD COUNT 7.9 K/mm3 (4.0-10.0)
[2022-04-14] MEDS: predniSONE 5 MG TABLET (UD) PO SCH (09:24)
[2022-04-14] MEDS: HYDROCHLOROTHIAZIDE 12.5 MG CAPSULE (FP) PO SCH (09:25)
[2022-04-14] MEDS: HEPARIN NA (PORCINE) 5,000 UNITS/ML 1ML VIAL SQ SCH ×2 (09:25→22:36)
[2022-04-14] MEDS: AZATHIOPRINE PO SCH (09:25)
[2022-04-14] MEDS: POTASSIUM CHLORIDE TABS 10 MEQ TABLET.ER (FP) PO SCH (09:25)
[2022-04-14] MEDS: LOSARTAN POTASSIUM 50 MG TABLET PO SCH (09:25)
[2022-04-14] MEDS: LABETALOL HCL 100 MG TABLET (FP) PO SCH (09:25)
[2022-04-14 09:46] LABS: BLOOD UREA NITROGEN 10.2 mg/dL (7-18); CALCIUM 9.3 mg/dL (8.5-10.1)
[2022-04-14 09:49] LABS: CREATININE 0.9 mg/dL (0.55-1.3)
[2022-04-14 09:51] LABS: BILIRUBIN,TOTAL 0.7 mg/dL (0.2-1); TOT PROT 6.8 g/dl (6.4-8.2)
[2022-04-15] MEDS: CEFAZOLIN SODIUM 2 GM in DEXTROSE 5%-WATER 100 ML IVPB SCH ×2 (01:36→10:15)
[2022-04-15] MEDS: predniSONE 5 MG TABLET (UD) PO SCH (10:13)
[2022-04-15] MEDS: HYDROCHLOROTHIAZIDE 12.5 MG CAPSULE (FP) PO SCH (10:14)
[2022-04-15] MEDS: POTASSIUM CHLORIDE TABS 10 MEQ TABLET.ER (FP) PO SCH (10:14)
[2022-04-15] MEDS: LABETALOL HCL 100 MG TABLET (FP) PO SCH (10:14)
[2022-04-15] MEDS: LOSARTAN POTASSIUM 50 MG TABLET PO SCH (10:15)
[2022-04-15] MEDS: HEPARIN NA (PORCINE) 5,000 UNITS/ML 1ML VIAL SQ SCH (10:38)
[2022-04-15] MEDS: AZATHIOPRINE PO SCH (10:38)
[2022-04-15 11:47] LABS: BASO % 1.5 % (0-2.0); EOS % 4.2 % (0-4.5); HEMATOCRIT 33.8 % (32.4-45.2); HEMOGLOBIN 11.3 GM/dL (10.7-15.3); LYMPH % 12.9 % (8-40); MCH 31.8 pg (25.7-33.7); MCHC 33.3 g/dl (32.0-36.0); MEAN CELL VOLUME 95.4 fl (80-96); MEAN PLT VOLUME 9.1 fl (7.5-11.1); NEUT % 72.4 % (42.8-82.8); PLATELET COUNT 493 10^3/uL (134-434); RBC 3.54 M/mm3 (3.60-5.2); WHITE BLOOD COUNT 6.8 K/mm3 (4.0-10.0)
[2022-04-15 12:03] LABS: ALBUMIN 2.8 g/dl (3.4-5.0); CALCIUM 9.1 mg/dL (8.5-10.1)
[2022-04-15 12:06] LABS: CREATININE 0.8 mg/dL (0.55-1.3)
[2022-04-15 12:08] LABS: BILIRUBIN,TOTAL 0.5 mg/dL (0.2-1); TOT PROT 6.5 g/dl (6.4-8.2)
[2022-04-15 15:03] VITALS: BP 130/83; PULSE 76; TEMP 99.3
== END 2022-04-15 15:36 | disposition home or self-care (01) | DRG 872 ==
LOC: JER 13:19 → JERBED 16:54 → J6S 22:31
PROVIDERS: ADMIT Internal Medicine; ATTEND Family Medicine
DX: A41.50 Gram-negative sepsis, unspecified (principal); N39.0 Urinary tract infection, site not specified; I10 Essential (primary) hypertension; G43.909 Migraine, unspecified, not intractable, without status migrainosus; E87.6 Hypokalemia; K75.4 Autoimmune hepatitis; R31.9 Hematuria, unspecified
CPT/HCPCS: 0241U-QW; 36415; 70450-TC; 71045-TC-FY; 74177-TC; 76775-TC; 76856-TC; 80048; 80053; 81003; 82962; 83605; 85025; 85027; 85610; 85730; 86140; 87040; 87086; 87186; 93005; 93010; 99285-25; J3480; Q9967